=== PATIENT | female | born 1990 | race Caucasian/White ===

== ENCOUNTER 2018-07-22 04:51 | Emergency (ER) | payer MEDICAID ==
[~2018-07-22] VITALS: Ht 167.6 cm; Wt 63.5 kg
[2018-07-22 04:56] VITALS: Ht 167.6 cm; Wt 63.5 kg
[2018-07-22 05:24] LABS: RED CELL DISTRIBUTION WIDTH 12.5 % (11.5-14.5)
[2018-07-22 05:27] LABS: PLATELET COUNT 411 x10^3mcL (130-400)
[2018-07-22 05:32] LABS: AMPHETAMINE QUAL UR NONE DETECTED (See below)
[2018-07-22 05:42] LABS: CALCIUM 9.1 mg/dL (8.5-10.1); CARBON DIOXIDE 23.6 mmol/L (21-32); CHLORIDE SERUM 101 mmol/L (98-107); CREATININE SERUM 0.8 mg/dL (0.6-1.0); GFR1 > 60 mL/min; GLUCOSE SERUM 140 mg/dL (74-106); POTASSIUM SERUM 3.4 mmol/L (3.5-5.1); SODIUM SERUM 134 mmol/L (136-145)
[2018-07-22 05:47] LABS: ALBUMIN 4.4 g/dL (3.4-5.0); ALKALINE PHOSPHATASE 71 U/L (46-116); ALT/SGPT 25 U/L (14-59); AST/SGOT 15 U/L (15-37); BILIRUBIN TOTAL 0.53 mg/dL (0.20-1.00)
[2018-07-22 05:48] LABS: TOTAL PROTEIN, SERUM 8.4 g/dL (6.4-8.2)
[2018-07-22 06:08] LABS: BAND NEUTROPHIL 3 % (0-10); BASOPHIL 0 % (0-2); MONOCYTE 1 % (0-7); SEGMENTED NEUTROPHILS 92 % (37-75)
[2018-07-22 06:11] LABS: rbc morphology (normal/abnorm) NORMAL (NORMAL)
[2018-07-22 06:12] LABS: PLATELET MORPHOLOGY PLATELETS NORMAL
[2018-07-22 15:19] VITALS: BP 120/82
== END 2018-07-22 15:19 ==
LOC: ED 04:51
PROVIDERS: Emergency Medicine
DX: G47.00 Insomnia, unspecified (principal); F15.10 Other stimulant abuse, uncomplicated; F32.9 Major depressive disorder, single episode, unspecified
CPT/HCPCS: G0480; J2060